=== PATIENT | female | born 2000 | race Caucasian/White ===

== ENCOUNTER 2021-08-13 14:08 | Emergency (ER) | payer OTHER, SELFPAY ==
--- NOTE | ~2021-08-13 | XR_ITS ---
EXAMINATION: XR CHEST 2 VIEW CLINICAL INFORMATION: Shortness of breath COMPARISON: None TECHNIQUE: PA and lateral views of the chest obtained. FINDINGS: The lungs are clear. There are no pleural effusions. The cardiomediastinal silhouette is normal. XR/XR chest 2V IMPRESSION: No active cardiopulmonary disease.
[2021-08-13 14:15] VITALS: BP 116/70; PULSE 95; RESP 19; TEMP 36.6; O2SAT 99; BMI 25.6
--- NOTE | 2021-08-13 15:08 | ED.GENADULT ---
HPI - General Adult General Chief complaint: Upper Respiratory Symptoms Stated complaint: chest pains/SOB Time Seen by Provider: 08/13/21 15:08 Source: patient Mode of arrival: ambulatory Limitations: no limitations History of Present Illness HPI narrative: Patient is a 25 year old female presenting to the emergency department today with nasal congestion and feeling generally unwell. Patient states that over the last 4 days she has felt generally unwell with nasal congestion. Patient denies any current dizziness, lightheadedness, abdominal pain, nausea, vomiting, fever, chills, blurry vision, double vision, loss of vision, chest pain, difficulty breathing, shortness of breath, back pain, night sweats, pain with urination, increased urinary frequency, increased urinary urgency, blood in her urine or stool, syncope or a near syncopal episode, recent trauma or falls, bowel incontinence, bladder incontinence, bowel retention, bladder retention, or any other complaints at this time. Onset (ago): day(s) (4) Radiation: non-radiation Severity: mild Severity scale (1-10): 3 Quality: dull Relieving factors: none Exacerbating factors: none Associated symptoms: denies other symptoms Treatments prior to arrival: none Related Data Previous Rx's Medication Instructions Recorded cyclobenzaprine 10 mg tablet 10 mg PO TID PRN muscle spasm 7 04/22/21 days #21 tabs ibuprofen 600 mg tablet 600 mg PO Q8H PRN pain 30 days #90 05/19/21 tabs doxycycline hyclate 100 mg capsule 100 mg PO BID 7 days #14 caps 08/13/21 Allergies Allergy/AdvReac Type Severity Reaction Status Date / Time Rabbit [RABBITS] Allergy Unknown HIVES Verified 04/22/21 10:27 Review of Systems Constitutional: Constitutional: Reports no additional constitutional complaints, Denies chills, Denies fever(s) and Denies night sweats Eyes: Eyes: Reports no additional eye complaints, Denies blurry vision, Denies change in vision, Denies diplopia, Denies eye discharge, Denies loss of vision and Denies eye pain ENT: Denies dizziness and Reports nasal congestion Cardiovascular: Cardiovascular: Reports no additional cardiovascular complaints, Denies chest pain, Denies lightheadedness, Denies Loss of Consciousness and Denies dyspnea Respiratory: Respiratory: Reports no additional respiratory complaints and Denies dyspnea Gastrointestinal: Gastrointestinal: Reports no additional gastrointestinal complaints, Denies abdominal pain, Denies melena, Denies hematochezia, Denies change in bowel habits and Denies change in stool character Genitourinary: Genitourinary: Denies hematuria, Denies urinary frequency, Denies dysuria, Denies urinary incontinence, Denies urinary hesitancy and Denies urinary urgency Musculoskeletal: Musculoskeletal: Reports no additional musculoskeletal complaints, Denies numbness and Denies tingling Neurologic: Denies dizziness, Denies loss of vision, Denies numbness and Denies tingling Psychiatric: Psychiatric: Reports no additional psychiatric complaints Endocrine: Endocrine: Reports no additional endocrine complaints Hematologic/Lymphatic: Hematologic/Lymphatic: Reports no additional hematologic/lymphatic complaints Allergic/Immunologic: Allergic/Immunologic: Reports no additional allergic/immunologic complaints PMFSH Past Medical History Attestation statement: The following information was validated with the patient. Source: old records reviewed Social History Social History Housing: House Patient Tobacco Use Status: Never used Tobacco Tobacco use type: Cigarette e-Cigarette/Vaping Use: Never Used Second Hand Smoke Exposure: No Advance Directives: No Advance Directives Information Provided: No service: No Current occupational status: employed Current occupational exposures/hazards: No Cognitive needs: No Hearing needs: No Vision needs: No Physical Exam ED Vital Signs: Vital Signs - 24 hr 08/13/21 14:15 Temperature 98 F Pulse Rate 95 Respiratory Rate 19 Blood Pressure 116/70 Pulse Oximetry 99 BMI result Body Mass Index 25.6 Const General: cooperative, no acute distress, alert and awake Nutritional Appearance: well nourished Orientation/consciousness: patient oriented x3 Limitations: no limitations [facility] Head: Yes normal to inspection and Yes atraumatic Ears: hearing grossly normal bilaterally and external ears normal General nose exam: Normal external nose present, no nasal discharge noted and no epistaxis Face and sinus: Yes normal facial exam, No abrasion and No laceration Mouth: Normal oral and palatal mucosa present, no drooling and no muffled voice Eyes General: appearance normal, both eyes and all related structures Periorbital: periorbital findings normal Eyelids: Yes eyelids normal Conjunctivae: conjunctivae normal Pupils: Equal, round and reactive pupils present EOM: EOMs intact bilaterally Neck Neck: Yes normal visual inspection, Yes full ROM and Yes no lymphadenopathy Chest Chest palpation & inspection: normal inspection of the chest Resp Effort & Inspection: normal respiratory effort and able to speak in complete sentences Auscultation: clear to auscultation bilaterally Cardio Rate: regular rate Rhythm: regular rhythm GI Inspection: Yes normal to inspection Neuro General: patient oriented x3 and moves all extremities Cranial nerves: Yes Equal, round and reactive pupils present Cognition (Neuro): normal cognition Motor exam (neuro): 5/5 motor strength present throughout Sensory Exam: Normal double simultaneous stimulation for sensation Coordination: [id number] test normal Extrem General: Yes normal to inspection, Yes full ROM and Yes capillary refill normal Psych Appearance: grossly normal Mental Status: mental status grossly normal Affect: normal affect Attitude: cooperative Thought process: Normal thought process present Thought content: Normal thought content present Insight: Good insight present (Psych) Medical Decision Making MDM Narrative Medical decision making narrative: Patient is a 20 year old female presenting to the emergency department today with nasal congestion and felling unwell. Patient's physical exam was unremarkable. Patient's rapid COVID-19 and influenza tests were negative. Patient's chest x-ray showed no acute process. I explained my physical exam findings as well as all test results to the patient. I answered all questions asked by the patient. I stressed the importance of the patient taking her medication as prescribed. I stressed the importance of the patient following up with her primary care provider. I stressed the importance of the patient returning to the emergency department immediately if her symptoms were to worsen or if she were to develop any dizziness, shortness of breath, difficulty breathing, chest pain, blurry vision, loss of vision, nausea, vomiting, abdominal pain, fever, chills, back pain, or any other complaints. Patient verbalized agreement and understanding with this treatment plan and discharge. Differential Diagnosis Differential Diagnosis: nasal congestion, sinusitis Medical Records Medical records reviewed: Yes I reviewed the patient's medical records. Lab Data Lab results reviewed: Yes I reviewed the patient's lab results. Labs: Lab Results 08/13/21 08/13/21 Range/Units 15:00 15:00 COVID-19 ([facility]AL) Negative (Negative) COVID-19 Clin Com See Note Influenza Type A ([facility]) Negative (Negative) Influenza Type B ([facility]RA) Negative (Negative) Influenza A & B Note See Note Imaging Data Chest x-ray: Attestation: I personally reviewed and interpreted this imaging study as follows: My impression: No acute process. Radiologist's impression: EXAMINATION: XR CHEST 2 VIEW CLINICAL INFORMATION: Shortness of breath COMPARISON: None TECHNIQUE: PA and lateral views of the chest obtained. FINDINGS: The lungs are clear. There are no pleural effusions. The cardiomediastinal silhouette is normal. XR/XR chest 2V IMPRESSION: No active cardiopulmonary disease. Dictated By: Nj Treadwell MD Signed By: Electronically signed by Nj Treadwell MD 08/13/21 1452 Discharge Plan Discharge Clinical Impression: Sinusitis Patient Disposition: Home, Self-Care Instructions: Sinusitis (ED) Additional Instructions: Follow up with your primary care provider. Return to the emergency department immediately if your symptoms worsen or if you develop any dizziness, shortness of breath, difficulty breathing, chest pain, blurry vision, loss of vision, nausea, vomiting, abdominal pain, fever, chills, back pain, or any other complaints. Prescriptions: New doxycycline hyclate 100 mg capsule 100 mg PO BID 7 Days Qty: 14 0RF No Action ibuprofen 600 mg tablet 600 mg PO Q8H PRN (Reason: pain) 30 Days Qty: 90 0RF cyclobenzaprine 10 mg tablet 10 mg PO TID PRN (Reason: muscle spasm) 7 Days Qty: 21 0RF Referrals: [facility] [Provider Group] (Call to establish and follow up with a primary care provider. If you already have a primary care provider, please call and follow up with them. ) [facility] [Provider Group] (Call to establish and follow up with a primary care provider. If you already have a primary care provider, please call and follow up with them. ) [facility]abil [Provider Group] (Call to establish and follow up with a primary care provider. If you already have a primary care provider, please call and follow up with them. ) Stand Alone Forms: Work/School Release Interventions: ED Discharge Assessment Last Done: 08/13/21 15:51 Discharge Date/Time: 08/13/21 15:52 Print Language: Romanian
[2021-08-13 15:31] LABS: COVID-19 Test Negative (Negative); IDNOW Serial# 16C4AD1C; Influenza A Negative (Negative); Influenza B2 Negative (Negative)
== END 2021-08-13 15:52 | disposition home or self-care (01) ==
PROVIDERS: Emergency Provider Emergency Medicine Emergency Medical Services; PCP Family Medicine
DX: J32.9 Chronic sinusitis, unspecified (principal); R07.89 Other chest pain; Z20.822 Contact with and (suspected) exposure to COVID-19; Z79.899 Other long term (current) drug therapy
CPT/HCPCS: 71046; 87502; 87635; 99282; 99283

== ENCOUNTER 2021-12-29 15:45 | Outpatient (REF) | payer OTHER, SELFPAY ==
[2021-12-30 12:09] LABS: Influenza A PCR NEGATIVE (Negative); Influenza B PCR NEGATIVE (Negative); Resp Syncy Virus RNA Qual PCR POSITIVE (Negative); SARS COV2 PCR INHOUSE NEGATIVE (Negative)
== END 2021-12-29 15:46 | disposition home or self-care (01) ==
LOC: HO.LAB 15:45
PROVIDERS: Visit Provider Family Medicine
DX: Z20.822 Contact with and (suspected) exposure to COVID-19 (principal)
CPT/HCPCS: 0241U

== ENCOUNTER 2022-02-01 09:35 | Emergency (ER) | payer OTHER, SELFPAY ==
--- NOTE | ~2022-02-01 | CT_ITS ---
EXAMINATION: CT HEAD WITHOUT CONTRAST CLINICAL INFORMATION: Dizziness. COMPARISON: No relevant prior imaging. TECHNIQUE: Contiguous axial imaging was performed from the skull base to vertex without intravenous administration of contrast. This CT examination was performed using dose optimization techniques as appropriate, variously including the following: *Automated exposure control *Adjustment of mA and/or kV according to patient size (this includes techniques or standardized protocols for targeted exams where dose is matched to indication/reason for exam; i.e. extremities or head) *Use of iterative reconstruction technique DLP: 582 mGy-cm FINDINGS: There is no acute intracranial hemorrhage or abnormal extra-axial collection. No intracranial mass effect or midline shift. Lateral and third ventricles are normal. No hydrocephalus. Ghosh-white matter differentiation is grossly preserved and there is no evidence of acute territorial infarct. The calvarium and skull base are intact. Mastoid air cells and middle ear cavities are well aerated. No active paranasal sinus disease. CT/CT head/brain wo IV con IMPRESSION: Normal CT scan of the head.
[2022-02-01 09:41] VITALS: BP 117/65; PULSE 80; RESP 19; TEMP 36.6; O2SAT 98; BMI 27.4
--- NOTE | 2022-02-01 10:09 | ECG_ITS ---
Test Reason : cp Blood Pressure : / mmHG Vent. Rate : 060 BPM Atrial Rate : 060 BPM P-R Int : 152 ms QRS Dur : 096 ms QT Int : 398 ms P-R-T Axes : 077 082 060 degrees QTc Int : 398 ms Sinus rhythm with marked sinus arrhythmia Otherwise normal ECG No previous ECGs available Referred By: Alexis Jennings Electronically Signed By:PEARL ALVARADO
--- NOTE | 2022-02-01 10:10 | ED_ITS ---
HPI - General Adult General Chief complaint: Dizziness Stated complaint: HBP Nausea Dizzy Sent by Time Seen by Provider: 02/01/22 10:06 Source: patient Mode of arrival: ambulatory Limitations: no limitations History of Present Illness HPI narrative: 21 yo female presented to the emergency department with chief complaint of dizziness, the patient described the dizziness lightheadedness no vertigo. Denies any vomiting diarrhea. Onset (ago): day(s) (1) Radiation: non-radiation Severity: mild Pain Consistency: constant Relieving factors: none Related Data Previous Rx's Medication Instructions Recorded cyclobenzaprine 10 mg tablet 10 mg PO TID PRN muscle spasm 7 04/22/21 days #21 tabs ibuprofen 600 mg tablet 600 mg PO Q8H PRN pain 30 days #90 05/19/21 tabs albuterol sulfate 90 mcg/actuation 2 puff inhalation Q4-6H PRN 12/29/21 aerosol inhaler (ProAir HFA) shortness of breath or wheezing 30 days #8.5 grams Allergies Allergy/AdvReac Type Severity Reaction Status Date / Time Rabbit [RABBITS] Allergy Unknown HIVES Verified 12/29/21 15:25 Review of Systems Constitutional: Constitutional: Reports no additional constitutional complaints ENT: Reports system reviewed and no additional complaints, except as documented Cardiovascular: Cardiovascular: Reports no additional cardiovascular c omplaints Respiratory: Respiratory: Reports no additional respiratory complaints Neurologic: Reports system reviewed and no additional complaints, except as documented PMFSH Past Medical History [facility] Narrative: none Social History Social History Housing: House Patient Tobacco Use Status: Never used Tobacco Tobacco use type: Cigarette Smoked in Last 30 Days: No e-Cigarette/Vaping Use: Never Used Second Hand Smoke Exposure: No Use of substances other than those prescribed or required for medical reasons: No Advance Directives: No service: No Current occupational status: employed Current occupational exposures/hazards: No Cognitive needs: No Hearing needs: No Vision needs: No Physical Exam ED Vital Signs: Vital Signs - 24 hr 02/01/22 09:41 02/01/22 10:33 02/01/22 11:45 Temperature 98 F Pulse Rate 80 74 72 Respiratory Rate 19 18 13 Blood Pressure 117/65 106/69 102/64 Pulse Oximetry 98 98 99 Oxygen Delivery Method Room Air Room Air Room Air BMI result Body Mass Index 27.4 Const General: cooperative and healthy appearing [facility] Head: Yes normal to inspection General nose exam: Normal external nose present Face and sinus: Yes normal facial exam Mouth: Normal oral and palatal mucosa present Neck Neck: Yes normal visual inspection and Yes full ROM Chest Chest palpation & inspection: normal inspection of the chest Resp Effort & Inspection: normal respiratory effort Cardio Rate: regular rate GI Inspection: Yes normal to inspection Palpation (GI): Soft to palpation, not firm, nontender and no guarding Skin General skin exam: no rashes or lesions noted and elasticity normal Rashes: no rashes Course Reevaluation(s) Reevaluation #1: Re-examined the patient at 13:10 is doing much better Time: 13:13 Medical Decision Making Differential Diagnosis Differential Diagnoses: The differential diagnosis associated with the presentation includes vertigo/anemia/dehydration Admission/Observation Consideration of admission/observation: Escalation of care including admission/observation considered Lab Data MDM Lab Attestation statement: I reviewed the patient's lab results. Result Diagrams: 02/01/22 10:40 02/01/22 10:40 Labs: Lab Results 02/01/22 02/01/22 02/01/22 Range/Units 10:40 10:40 10:40 WBC 6.8 (4.8-10.8) X10*3/uL RBC 5.27 (4.20-5.50) X10*6/uL Hgb 13.5 (12.0-16.0) g/dl Hct 42.6 (37.0-47.0) % MCV 80.8 (80.0-98.0) fL MCH 25.6 L (27.0-33.0) pg MCHC 31.7 (31.0-35.0) g/dl RDW 12.3 (11.0-16.0) % Plt Count 372 (160-400) X10*3/uL MPV 9.6 (9.4-12.3) fL Immature Gran % (Auto) 1.0 H (0.0-0.4) % Neut % (Auto) 57.4 (45-73) % Lymph % (Auto) 30.2 (20-40) % [place] % (Auto) 7.1 (2-11) % Eos % (Auto) 3.9 (0-4) % Baso % (Auto) 0.4 (0-2) % Lymph # (Auto) 2.0 (1.2-4.9) X10*3/uL [place] # (Auto) 0.5 (0.1-1.2) X10*3/uL Eos # (Auto) 0.3 (0.0-0.4) X10*3/uL Baso # (Auto) 0.0 (0.0-0.2) X10*3/uL Abs Immat Gran (auto) 0.07 H (0.00-0.03) X10*3/uL Absolute Neuts (auto) 3.9 (2.0-8.3) x10*3/uL Absolute Nucleated RBC 0.000 (0.0-0.012) X10*3/uL Nucleated RBC % (auto) 0.0 (0.0-0.2) /100WBC Sodium 140 (135-145) mmol/L Potassium 4.3 (3.3-5.1) mmol/L Chloride 109 H (96-108) mmol/L Carbon Dioxide 25 (22-29) mmol/L Anion Gap 10 L (12-20) BUN 9 (9-16) mg/dL Creatinine 0.72 (0.5-1.4) mg/dL Estim Creat Clear Calc 109.8 Estimated GFR > 60 Random Glucose 90 (60-115) mg/dL Calcium 9.3 (8.4-10.2) mg/dL Total Bilirubin 0.9 (0.0-1.0) mg/dL AST 14 (5-31) U/L ALT 12 (0-31) U/L Alkaline Phosphatase 69 (39-117) U/L Troponin I High Sens 4.0 (<3.5-17.0) ng/L Total Protein 6.8 (6.5-8.0) g/dL Albumin 4.4 (3.5-5.0) g/dL Beta HCG, Quant < 2 mIU/mL COVID-19 ([facility]AL) (Negative) COVID-19 Clin Com 02/01/22 Range/Units 10:40 WBC (4.8-10.8) X10*3/uL RBC (4.20-5.50) X10*6/uL Hgb (12.0-16.0) g/dl Hct (37.0-47.0) % MCV (80.0-98.0) fL MCH (27.0-33.0) pg MCHC (31.0-35.0) g/dl RDW (11.0-16.0) % Plt Count (160-400) X10*3/uL MPV (9.4-12.3) fL Immature Gran % (Auto) (0.0-0.4) % Neut % (Auto) (45-73) % Lymph % (Auto) (20-40) % [place] % (Auto) (2-11) % Eos % (Auto) (0-4) % Baso % (Auto) (0-2) % Lymph # (Auto) (1.2-4.9) X10*3/uL [place] # (Auto) (0.1-1.2) X10*3/uL Eos # (Auto) (0.0-0.4) X10*3/uL Baso # (Auto) (0.0-0.2) X10*3/uL Abs Immat Gran (auto) (0.00-0.03) X10*3/uL Absolute Neuts (auto) (2.0-8.3) x10*3/uL Absolute Nucleated RBC (0.0-0.012) X10*3/uL Nucleated RBC % (auto) (0.0-0.2) /100WBC Sodium (135-145) mmol/L Potassium (3.3-5.1) mmol/L Chloride (96-108) mmol/L Carbon Dioxide (22-29) mmol/L Anion Gap (12-20) BUN (9-16) mg/dL Creatinine (0.5-1.4) mg/dL Estim Creat Clear Calc Estimated GFR Random Glucose (60-115) mg/dL Calcium (8.4-10.2) mg/dL Total Bilirubin (0.0-1.0) mg/dL AST (5-31) U/L ALT (0-31) U/L Alkaline Phosphatase (39-117) U/L Troponin I High Sens (<3.5-17.0) ng/L Total Protein (6.5-8.0) g/dL Albumin (3.5-5.0) g/dL Beta HCG, Quant mIU/mL COVID-19 (RONAL) Negative (Negative) COVID-19 Clin Com See Note Independent Interpretation I performed an independent interpretation of an: EKG (Normal sinus rhythm rate is [address]-T changes) and CT Scan Interpretation: *Adjustment of mA and/or kV according to patient size (this includes techniques or standardized protocols for targeted exams where dose is matched to indication/reason for exam; i.e. extremities or head) *Use of iterative reconstruction technique DLP: 582 mGy-cm FINDINGS: There is no acute intracranial hemorrhage or abnormal extra-axial collection. No intracranial mass effect or midline shift. Lateral and third ventricles are normal. No hydrocephalus. Ghosh-white matter differentiation is grossly preserved and there is no evidence of acute territorial infarct. The calvarium and skull base are intact. Mastoid air cells and middle ear cavities are well aerated. No active paranasal sinus disease. ? CT/CT head/brain wo IV con IMPRESSION: Normal CT scan of the head. Dictated By: Yang Leroy MD Signed By: <Electronically signed by Yang Leroy MD in OV> 02/01/22 1038 Discharge Plan Discharge Clinical Impression: Dizziness Patient Disposition: Home, Self-Care Instructions: Dizziness (ED) Additional Instructions: Follow-up with your primary care physician return if you worse any concern Prescriptions: No Action ibuprofen 600 mg tablet 600 mg PO Q8H PRN (Reason: pain) 30 Days Qty: 90 0RF albuterol sulfate [ProAir HFA] 90 mcg/actuation HFA aerosol inhaler 2 puff inhalation Q4-6H PRN (Reason: shortness of breath or wheezing) 30 Days Qty: 8.5 0RF cyclobenzaprine 10 mg tablet 10 mg PO TID PRN (Reason: muscle spasm) 7 Days Qty: 21 0RF Referrals: Ramiro Joshua MD [Primary Care Provider] - 1 day Stand Alone Forms: Work/School Release
[2022-02-01 10:33] VITALS: BP 106/69; PULSE 74; RESP 18; O2SAT 98
[2022-02-01 10:46] LABS: MANUAL DIFF FLAG NO
--- NOTE | 2022-02-01 10:47 | PC.NURSE ---
pt is alert and oriented, skin appropriate for ethnicity, respirations even and unlabored, pt reports last two days have not been feeling right, feels like she is having pressure behind her eyes and feeling lightheaded, but when she lays down and stays still that feeling improves, denies chest pain/sob/cough/headache
[2022-02-01 10:50] LABS: Basophils Percent Auto 0.4 % (0-2); Eosinophils Absolute Auto 0.3 X10*3/uL (0.0-0.4); Eosinophils Percent Auto 3.9 % (0-4); Hematocrit 42.6 % (37.0-47.0); Hemoglobin 13.5 g/dl (12.0-16.0); Imm Gran Abs Auto 0.07 X10*3/uL (0.00-0.03); Lymphocytes Percent Auto 30.2 % (20-40); Mean Corpuscular HGB Conc 31.7 g/dl (31.0-35.0); Mean Corpuscular Hemoglobin 25.6 pg (27.0-33.0); Mean Corpuscular Volume 80.8 fL (80.0-98.0); Mean Platelet Volume 9.6 fL (9.4-12.3); Monocytes Absolute Auto 0.5 X10*3/uL (0.1-1.2); Monocytes Percent Auto 7.1 % (2-11); Neutrophils Absolute Auto 3.9 x10*3/uL (2.0-8.3); Neutrophils Percent Auto 57.4 % (45-73); Platelet Count 372 X10*3/uL (160-400); Red Blood Count 5.27 X10*6/uL (4.20-5.50); Red Cell Distribution Width 12.3 % (11.0-16.0); White Blood Count 6.8 X10*3/uL (4.8-10.8)
[2022-02-01 11:08] LABS: COVID-19 Test Negative (Negative); IDNOW Serial# 9DB6401D
[2022-02-01 11:13] LABS: Alanine Aminotransferase 12 U/L (0-31); Albumin Level 4.4 g/dL (3.5-5.0); Alkaline Phosphatase 69 U/L (39-117); Anion Gap 10 (12-20); Aspartate Amino Transferase 14 U/L (5-31); Bilirubin Total 0.9 mg/dL (0.0-1.0); Blood Urea Nitrogen 9 mg/dL (9-16); Calcium 9.3 mg/dL (8.4-10.2); Carbon Dioxide 25 mmol/L (22-29); Chloride 109 mmol/L (96-108); Creatinine Clr Calc Pharmacy 109.8; Estimated Glomerular Filt Rate > 60; Glucose Random 90 mg/dL (60-115); HCG Quantitative < 2 mIU/mL; Potassium 4.3 mmol/L (3.3-5.1); Sodium 140 mmol/L (135-145); Total Protein 6.8 g/dL (6.5-8.0)
[2022-02-01 11:45] VITALS: BP 102/64; PULSE 72; RESP 13; O2SAT 99
--- NOTE | 2022-02-01 11:49 | PC.NURSE ---
pt a&ox3, vss, pt denies any pain/light headedness at this time. no new orders.
== END 2022-02-01 13:20 | disposition home or self-care (01) ==
PROVIDERS: Emergency Provider Emergency Medicine; PCP Family Medicine
DX: R07.89 Other chest pain (principal); R42 Dizziness and giddiness; Z20.822 Contact with and (suspected) exposure to COVID-19; Z79.899 Other long term (current) drug therapy
CPT/HCPCS: 36415; 70450; 80053; 84484; 84702; 85025; 87635; 93005; 99284

== ENCOUNTER 2022-11-17 10:38 | Outpatient (AMB) | payer OTHER, SELFPAY ==
[2022-11-17 10:43] VITALS: BP 118/70; PULSE 80; RESP 12; TEMP 37; O2SAT 99; BMI 27.9
--- NOTE | 2022-11-17 10:43 | MHC.PC.OV ---
Vital Signs 11/17/22 10:43 Height 5 ft 2 in Weight 152 lb 8 oz BMI 27.9 BP 118/70 Blood Pressure Location Lt brachial Position Sitting Respiration 12 Pulse 80 Pulse Source Pulse Oximeter Temp 98.6 F Temp Source Oral Pulse Oximetry (%) 99 Oxygen Delivery Method Room Air Intake Visit Reasons: CPE with f/u labs and health maintenance Intake Note: Patient is here for a physical today, and concerned about yeast infection since she started control patch. Allergies Rabbit [RABBITS] Allergy (Unknown, Verified 11/17/22 10:57) HIVES Medication List - Last Reconciled 11/17/22 by Gal Salcido CNP albuterol sulfate 90 mcg/actuation (ProAir HFA) 2 puffs inhalation Q4-6H PRN 30 days fluticasone propionate 50 mcg/actuation (Flonase Allergy Relief) 1 spray intranasal Q12H 90 days ibuprofen 600 mg PO Q8H PRN 30 days norelgestromin-ethin.estradiol 150-35 mcg/24 hr (Xulane) 1 patch transdermal QWEEK 28 days Tobacco use date assessed: 11/17/22 Dental Screening Dental Screen Date: 11/17/22 Did you have a dental visit in the last 12 months?: Yes Did you have a dental problem in the last 6 months where you did not have access to dental care?: No Was dental information given to patient?: Patient has dentist HPI HPI Comments History of Present Illness Details 22-year-old female presents for a complete physical exam and review of recent labs. Her PCP ordered labs, including routine labs and STD tests in July, however, she has not gotten her lab work done. No significant past medical history. She notes she continues to use Flonase and an albuterol inhaler for h/o URI. She reports recurring vaginal infections since she was started on Xulane patch contraception in late August 2022. She has concerns for recurring vaginal yeast infection or BV. She was prescribed Diflucan by her PCP in late August for vaginal yeast infection which subsided. She notes that she has had experiencing milky white vaginal discharge, at least daily, for the past 3 weeks. She reports associated strong, fishy odor. She denies vaginal pain or itching. She denies abdominal pain, nausea, vomiting, fever, chills, body aches, fatigue, weakness. She denies dysuria, hematuria, urinary urgency, frequency, or hesitancy. She notes that she has never been sexually active and has no concerns for STD. She states she has never had a pap smear test because she has never been sexually active. She is excited that she is getting next month. 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 Yang Rogers, Estela López, Emir Thompson and colleagues, with an educational pankaj from [employer]. Review of Systems Const Details: Denies chills, Denies fatigue, Denies fever(s), Denies headache(s) and Denies weakness HEENT Denies change in vision, Denies dizziness, Denies headache(s), Denies hearing loss, Denies nasal congestion, Denies sinus pain, Denies sinus pressure and Denies sore throat Card Denies chest pain, Denies lightheadedness, Denies dyspnea and Denies other (palpitations) Resp Denies cough, Denies dyspnea and Denies wheezing GI Denies abdominal pain, Denies melena, Denies hematochezia, Denies change in bowel habits, Denies dyspepsia and Denies nausea Reports as per HPI Musc Denies abnormal gait, Denies myalgias, Denies arthralgias, Denies numbness and Denies tingling Skin/Breast Denies rash, Denies unusual bruising and Denies wounds Neuro Denies abnormal gait, Denies dizziness, Denies headache(s), Denies memory loss, Denies numbness, Denies Sensory deficit (Neuro), Denies tingling and Denies weakness Psych Denies anxiety, Denies depression and Denies memory loss Endo Denies cold intolerance, Denies fatigue, Denies heat intolerance, Denies polydipsia and Denies polyuria Ren/Lymph Denies easy bleeding and Denies easy bruising Aller/Immun Denies wheezing Physical exam (Primary Care) Vital Signs: Last Vital Signs Temp 98.6 F 11/17/22 10:43 Pulse 80 11/17/22 10:43 Resp 12 11/17/22 10:43 BP 118/70 11/17/22 10:43 Pulse Ox 99 11/17/22 10:43 Oxygen Delivery Method Room Air 11/17/22 10:43 BMI result Body Mass Index 27.9 Tobacco/Smoking Status: Tobacco use Status Tobacco use date assessed 11/17/22 11/17/22 10:50 Patient Tobacco Use Status Never used Tobacco 11/17/22 10:50 Tobacco use type Cigarette 11/17/22 10:50 e-Cigarette/Vaping Use Never Used 11/17/22 10:50 Const Other: General: no acute distress, well developed, alert and awake Nutritional Appearance: well nourished Orientation/consciousness: patient oriented x3 HENMT Head: Yes normocephalic and Yes atraumatic Ears: hearing grossly normal bilaterally and TM's normal bilaterally General nose exam: Normal external nose present and Normal nares present Mouth: Normal oral and palatal mucosa present and moist mucous membranes Teeth and gingiva: dentition normal Throat: Yes oropharynx normal Eyes Pupils: Equal, round and reactive pupils present and Pupil accommodation reflex normal EOM: EOMs intact bilaterally Neck Neck: Yes normal visual inspection, Yes no lymphadenopathy and Yes trachea midline Thyroid: Thyroid normal Carotids: no bruits Lymphatic: no lymphadenopathy noted Chest Chest palpation & inspection: normal inspection of the chest Resp Effort & Inspection: normal respiratory effort Auscultation: clear to auscultation bilaterally Cardio Rate: regular rate Rhythm: regular rhythm Heart sounds: S1 normal heart sound present, S2 normal heart sound present, no gallops, no murmurs and no rubs Bruits: no abdominal aortic bruits and no carotid bruits GI Palpation (GI): No Abdominal aortic bruit present, Soft to palpation, nontender, No hepatosplenomegaly present and No Rebound tenderness present Auscultation: normal bowel sounds General: Yes no CVA tenderness. Slight erythema to the opening of the vagina, white patches noted to small area of each side of the labia minora, no discharge or odor Back/Spine/Pelvis Back: no CVA tenderness Cervical Spine: cervical ROM normal and No Cervical spine tenderness Thoracic/Lumbar Spine: thoraco-lumbar ROM normal, No pain with thoraco-lumbar ROM, No thoracic spinal tenderness and No lumbar spinal tenderness Skin General: warm and dry. Normal skin color. Normal skin turgor Lesions: no lesions Rashes: no rashes Trauma: no lacerations or abrasions Wounds: no wounds Nails: normal Neuro General: patient oriented x3, gait normal and CN's II-XI intact bilaterally Cranial nerves: Yes Equal, round and reactive pupils present Cognition (Neuro): normal cognition Gait exam (Neuro): Normal gait present Motor exam (neuro): 5/5 motor strength present throughout Sensory Exam: No Sensory deficit (Neuro) Deep tendon reflexes (DTR's): Right patellar reflex intensity grade: 2+ and Left patellar reflex intensity grade: 2+ Extrem General: Yes normal to inspection, No edema and No calf tenderness Psych Appearance: grossly normal Affect: normal affect Attitude: cooperative Thought process: Normal thought process present Assessment and Plan Assessment & Plan (1) Normal physical examination, routine: Code(s): Z00.00 - Encounter for general adult medical examination without abnormal findings Plan: No significant physical restrictions or limitations noted Advised to fast for at least 10-12 hours and get routine blood work done. Follow-up with PCP in 3-4 weeks for review of lab results. Return sooner symptoms or concerns. Verbalized understanding and agreed with treatment plan. (2) Vaginal candidiasis: Code(s): B37.31 - Acute candidiasis of vulva and vagina Plan: Patient reports requiring vaginal infection, possibly yeast infection or PE, since she was started on Xulane transdermal patch contraception She notes that she has had experiencing milky white vaginal discharge, at least daily, for the past 3 weeks. She reports associated strong, fishy odor. No order associated symptoms Slight erythema to the opening of the vagina, white patches noted to small area of each side of the labia minora, no discharge or odor Likely vaginal candidiasis No evidence of bacterial infection Fluconazole ordered. Take as prescribed Referred to sr account executive for recurring vaginal infection on Xulane Vaginal swab collected and will be sent to rule out BV Advised to get STD labs done today Will review lab results and make changes to her care plan if warranted Return with worsening or new symptoms Verbalized understanding and agreed with treatment plan. 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
== END 2022-11-17 12:11 | disposition home or self-care (01) ==
PROVIDERS: PCP Family Medicine; Visit Provider Nurse Practitioner Family
DX: Z00.00 Encounter for general adult medical examination without abnormal findings (principal); B37.31 Acute candidiasis of vulva and vagina
CPT/HCPCS: 99213; 99395

== ENCOUNTER 2022-11-17 11:33 | Outpatient (REF) | payer OTHER, SELFPAY ==
[2022-11-17 14:22] LABS: MANUAL DIFF FLAG NO
[2022-11-17 14:27] LABS: Basophils Percent Auto 0.3 % (0-2); Eosinophils Absolute Auto 0.2 X10*3/uL (0.0-0.4); Eosinophils Percent Auto 1.7 % (0-4); Hematocrit 41.9 % (37.0-47.0); Hemoglobin 13.1 g/dl (12.0-16.0); Imm Gran Abs Auto 0.08 X10*3/uL (0.00-0.03); Imm Gran Pct Auto 0.8 % (0.0-0.4); Lymphocytes Absolute Auto 2.3 X10*3/uL (1.2-4.9); Lymphocytes Percent Auto 23.8 % (20-40); Mean Corpuscular HGB Conc 31.3 g/dl (31.0-35.0); Mean Corpuscular Hemoglobin 25.8 pg (27.0-33.0); Mean Corpuscular Volume 82.6 fL (80.0-98.0); Mean Platelet Volume 10.9 fL (9.4-12.3); Monocytes Absolute Auto 0.8 X10*3/uL (0.1-1.2); Monocytes Percent Auto 8.2 % (2-11); Neutrophils Absolute Auto 6.4 x10*3/uL (2.0-8.3); Neutrophils Percent Auto 65.2 % (45-73); Platelet Count 395 X10*3/uL (160-400); Red Blood Count 5.07 X10*6/uL (4.20-5.50); Red Cell Distribution Width 12.5 % (11.0-16.0); White Blood Count 9.8 X10*3/uL (4.8-10.8)
[2022-11-17 14:48] LABS: Appearance Urine Turbid; Color Urine Yellow; Glucose Urine UA Negative (Negative); Leukocyte Esterase Urine Negative (Negative); Nitrite Urine Negative (Negative); PH 5.5 (5.0-9.0); Specific Gravity - Urine 1.025 (1.005-1.025); Urine Blood Negative (Negative); Urine Ketones Negative (Negative); Urine Protein Negative (Neg-Trace)
[2022-11-17 14:59] LABS: Alanine Aminotransferase 6 U/L (0-31); Albumin Level 4.4 g/dL (3.5-5.0); Alkaline Phosphatase 60 U/L (39-117); Anion Gap 14 (12-20); Aspartate Amino Transferase 10 U/L (5-31); Bilirubin Total 0.4 mg/dL (0.0-1.0); Blood Urea Nitrogen 8 mg/dL (9-16); Calcium 9.7 mg/dL (8.4-10.2); Carbon Dioxide 22 mmol/L (22-29); Chloride 108 mmol/L (96-108); Estimated Glomerular Filt Rate > 60; Glucose Fasting 97 mg/dL (60-99); Sodium 140 mmol/L (135-145); Total Protein 7.3 g/dL (6.5-8.0)
[2022-11-17 15:17] LABS: TSH reflex Free T4 0.56 uIU/mL (0.32-4.0)
[2022-11-17 15:36] LABS: Microalbum/Creatinine Ratio Ur 5.1 ug/mg cr (<30)
[2022-11-17 16:48] LABS: CT PCR NOT DETECTED (Not Detect.); NG PCR NOT DETECTED (Not Detect.)
[2022-11-18 03:14] LABS: Syphilis Screen Nonreactive (Nonreactive)
[2022-11-18 03:26] LABS: HBS Num1 0.44 mIU/mL (0-7.99); HBc Num1 0.06 S/CO (0.00-0.79); HBsAGNum1 0.51 S/CO (0.00-0.99); HIV AB/AG Nonreactive (Nonreactive); HIV Num 1 0.05 S/CO (0.00-0.99); Hepatitis B Core Antibody Nonreactive (Nonreactive); Hepatitis B Surface Antigen Negative (Negative); ~HepC Num1 0.12 S/CO (0.00-0.79); ~Hepatitis B Surface Antibody NONREACTIVE (Nonreactive); ~Hepatitis C Antibody Nonreactive (Nonreactive)
[2022-11-18 11:15] LABS: BV Int Neg Control Negative (Negative); BV Int Pos Control Positive (Positive)
== END 2022-11-17 11:34 | disposition home or self-care (01) ==
LOC: HO.WFDLDS 11:33
PROVIDERS: Visit Provider Family Medicine
DX: Z00.00 Encounter for general adult medical examination without abnormal findings (principal); I10 Essential (primary) hypertension; Z20.2 Contact with and (suspected) exposure to infections with a predominantly sexual mode of transmission
CPT/HCPCS: 0353U; 36415; 80053; 81003; 82043; 82570; 84443; 85025; 86704; 86706; 86780; 86803; 87340; 87389; 87480; 87510; 87660

== ENCOUNTER 2022-11-17 12:04 | Outpatient (REF) | payer OTHER, SELFPAY | END 2022-11-17 12:05 | disposition home or self-care (01) | LOC: HO.LAB 12:04 | PROVIDERS: Visit Provider Nurse Practitioner Family | DX: Z13.89 Encounter for screening for other disorder (principal) ==

== ENCOUNTER 2023-12-03 11:28 | Emergency (ER) | payer OTHER, SELFPAY ==
--- NOTE | ~2023-12-03 | US_ITS ---
EXAMINATION: US , LIMITED TECHNIQUE: Limited OB INDICATION: 36 week , abd pain FINDINGS: There is a single live intrauterine fetus in a cephalic presentation with an approximate heart rate of 132 beats per minute. Right ovary not seen. Left ovary- 2.1 x 1.6 x 2.2cm within normal limits. Assessment of the anatomic structures, placenta location and cervical length is nondiagnostic. US/US OB limited IMPRESSION: Single live IUP in a cephalic presentation. Electronically signed by: Dominga Lazar MD 12/03/2023 03:12 PM EDT
[2023-12-03 11:30] VITALS: BP 121/76; PULSE 101; RESP 18; TEMP 36.9; O2SAT 97; BMI 31.9
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
[2023-12-03 12:07] LABS: MANUAL DIFF FLAG NO
[2023-12-03 12:08] LABS: Basophils Absolute Auto 0.1 X10*3/uL (0.0-0.2); Basophils Percent Auto 0.4 % (0-2); Eosinophils Absolute Auto 0.2 X10*3/uL (0.0-0.4); Eosinophils Percent Auto 1.8 % (0-4); Hematocrit 35.2 % (37.0-47.0); Hemoglobin 11.5 g/dl (12.0-16.0); Imm Gran Abs Auto 0.38 X10*3/uL (0.00-0.03); Imm Gran Pct Auto 3.1 % (0.0-0.4); Lymphocytes Absolute Auto 1.8 X10*3/uL (1.2-4.9); Lymphocytes Percent Auto 14.6 % (20-40); Mean Corpuscular HGB Conc 32.7 g/dl (31.0-35.0); Mean Corpuscular Hemoglobin 25.5 pg (27.0-33.0); Mean Platelet Volume 9.9 fL (9.4-12.3); Monocytes Absolute Auto 0.7 X10*3/uL (0.1-1.2); Monocytes Percent Auto 5.5 % (2-11); Neutrophils Absolute Auto 9.1 x10*3/uL (2.0-8.3); Neutrophils Percent Auto 74.6 % (45-73); Platelet Count 307 X10*3/uL (160-400); Red Blood Count 4.51 X10*6/uL (4.20-5.50); Red Cell Distribution Width 13.7 % (11.0-16.0); White Blood Count 12.2 X10*3/uL (4.8-10.8)
[2023-12-03 12:28] LABS: Alanine Aminotransferase 10 U/L (0-31); Albumin Level 3.4 g/dL (3.5-5.0); Alkaline Phosphatase 165 U/L (39-117); Anion Gap 15 (12-20); Aspartate Amino Transferase 9 U/L (5-31); Bilirubin Total 0.4 mg/dL (0.0-1.0); Blood Urea Nitrogen 7 mg/dL (9-16); Calcium 8.7 mg/dL (8.4-10.2); Carbon Dioxide 19 mmol/L (22-29); Chloride 107 mmol/L (96-108); Creatinine Clr Calc Pharmacy 158.5; Estimated Glomerular Filt Rate > 60; Glucose Random 100 mg/dL (60-115); Lipase 24 U/L (8-78); Magnesium 1.6 mg/dL (1.6-2.6); Potassium 3.5 mmol/L (3.3-5.1); Sodium 137 mmol/L (135-145); Total Protein 6.2 g/dL (6.5-8.0)
[2023-12-03 12:48] LABS: Appearance Urine Clear; Color Urine Yellow; Glucose Urine UA Negative (Negative); Leukocyte Esterase Urine Negative (Negative); Nitrite Urine Negative (Negative); PH 5.5 (5.0-9.0); Urine Blood Negative (Negative); Urine Ketones Negative (Negative); Urine Protein Negative (Neg-Trace)
[2023-12-03 13:38] VITALS: BP 113/69; PULSE 95; RESP 16; TEMP 36.5; O2SAT 98
[2023-12-03 14:22] LABS: CT PCR NOT DETECTED (Not Detect.); NG PCR NOT DETECTED (Not Detect.)
[2023-12-03 14:55] LABS: Bacterial Vaginosis PCR NEGATIVE (Negative); Candida Group PCR NOT DETECTED (Not Detect); Candida glab krusei PCR NOT DETECTED (Not Detect); Trichomonas vaginalis PCR NOT DETECTED (Not Detect)
[2023-12-03 15:28] VITALS: BP 123/70; PULSE 70; RESP 18; TEMP 36.8; O2SAT 98
== END 2023-12-03 15:29 | disposition home or self-care (01) ==
PROVIDERS: Nurse Practitioner Family; Emergency Provider Emergency Medicine
DX: O99.013 Anemia complicating pregnancy, third trimester (principal); Z3A.36 36 weeks gestation of pregnancy; R10.2 Pelvic and perineal pain; N89.8 Other specified noninflammatory disorders of vagina; Z79.899 Other long term (current) drug therapy
CPT/HCPCS: 0352U; 36415; 76815; 80053; 81003; 83690; 83735; 85025; 86900; 86901; 87491; 87591; 99284